=== PATIENT | female | born 1985 | race Caucasian/White ===

== ENCOUNTER 2024-05-23 23:52 | Emergency (ER) | payer BC, SELFPAY ==
[2024-05-24 00:11] VITALS: BP 126/76
[2024-05-24 01:41] VITALS: BMI 29.2
[2024-05-24] MEDS: NSS 1000 IV (01:42)
[2024-05-24 02:01] LABS: % Basophils 0.3 % (0-2); % Eosinophils 0.3 % (0-6); % Immature Granulocytes 0.3 % (0-0.5); % Lymphocytes 9.9 % (20.5-51.1); % Monocytes 4.2 % (1.7-9.3); Absolute Lymphocytes 0.9 10^3/uL (1.2-3.4); Absolute Monocytes 0.4 10^3/uL (0.1-0.6); Absolute Neutrophils 8.1 10^3/uL (1.4-6.5); Hematocrit 34.7 % (37.0-47.0); Mean Corp Hgb Conc. 31.7 g/dL (33.0-37.0); Mean Corpuscular Hgb 24.2 pg (27.0-31.0); Mean Corpuscular Volume 76.4 fL (81.0-99.0); Mean Platelet Volume 9.1 fL (7.4-10.4); Nucleated Red Blood Cells % 0 %; Platelet Count 379 10^3/uL (130-400); Red Blood Cell Count 4.54 10^6/uL (4.20-5.40); Red Cell Dist. Width 15.8 % (11.5-14.5); White Blood Cell Count 9.5 10^3/uL (4.8-10.8)
[2024-05-24 02:07] LABS: Blood Urea Nitrogen 10 mg/dl (7-17); Calcium 9.8 mg/dl (8.4-10.2); Carbon Dioxide 24 mmol/L (22-30); Chloride 104 mmol/L (98-107); Estimated Creatinine Clearance > 125 ml/min; Glucose 118 mg/dl (70-99); Potassium 4.1 mmol/L (3.5-5.1); Sodium 137 mmol/L (135-145); eGFR > 60.00
--- NOTE | 2024-05-24 03:04 | EDRN ---
Patient reports feeling little better at this time.
--- NOTE | 2024-05-24 03:59 | ED.GENMED ---
History of Present Illness
General
Chief Complaint: Headache
Source: patient and spouse
Exam Limitations: none
Time Seen by Provider: 05/24/24 01:10
History of Present Illness
History of Present Illness:
39-year-old female presents with a headache. Patient does have a history of migraines. She states this afternoon started headache that is gradually gotten worse through the day. She admits she had a dry family member 2 hours away and come back.
On the way back is when her headache started. Interestingly though she started to have some feeling in her legs like her legs were cramping. She states this has happened to her few times in the past as well. She recently has been trying more
natural remedies for her headaches such as massage and chiropractic work. Patient states her headache is mostly gone on my evaluation. Her cramping is improved. Her headache is about a 1 or 2. No fevers or neck pain. No rash. No injury. No
vision changes. No motor weakness. No numbness or tingling. Spouse states that he tried massaging her seemed help a little bit but not fully.
Past History
Past History
ED Past Medical History: Asthma and Other (Cystitis, migraines)
ED Past Surgical History: Cholecystectomy (Cystitis, Miscarrage)
Social History
Tobacco: Non-smoker
Alcohol: None
Drug: None
Personal:
Living: with family
Employment: Employed
Phy Exam
Physical Exam
Physical Exam:
CONSTITUTIONAL Patient alert and oriented to person, place and time. Well-appearing. Vital signs reviewed.
HEAD atraumatic, normocephalic.
EYES eyelids normal to inspection, Extraocular muscles intact, Conjunctiva normal, Sclera normal.
NECK normal range of motion, Trachea midline, no jugular venous distention.
RESPIRATORY CHEST No respiratory distress noted, Chest expansion equal
BACK normal inspection, no obvious deformities
UPPER EXTREMITY range of motion normal, Motor strength normal, no cyanosis, no edema.
LOWER EXTREMITY range of motion normal, Motor strength normal, no cyanosis, no edema.
NEURO Speech normal, No focal motor deficits, Benjamin coma scale 15, Memory normal, Cranial Nerves intact to screening exam. No pronator drift
SKIN skin warm, dry, and normal in color.
Course
Orders/Labs/Results
Orders:
Orders
05/24/24 01:32
CT Head W/o Iv Contrast Urgent
Comment:
Reason For Exam: CUEVAS
0.9% Sodium Chloride 1000 ml [Nss] 1,000 ml IV BOLUS
05/24/24 01:36
Basic Metabolic Panel Urgent
Complete Blood Count/With Diff Urgent
Abnormal Lab Results
05/24/24
01:36
Hgb 11.0 L g/dL
(12.0-16.0)
Hct 34.7 L %
(37.0-47.0)
MCV 76.4 L fL
(81.0-99.0)
MCH 24.2 L pg
(27.0-31.0)
MCHC 31.7 L g/dL
(33.0-37.0)
RDW 15.8 H %
(11.5-14.5)
Absolute Neuts (auto) 8.1 H 10^3/uL
(1.4-6.5)
Absolute Lymphs (auto) 0.9 L 10^3/uL
(1.2-3.4)
Neutrophils % 85.0 H %
(42.2-75.2)
Lymphocytes % 9.9 L %
(20.5-51.1)
Glucose 118 H mg/dl
(70-99)
05/24/24 01:36
05/24/24 01:36
Vital Signs
Initial and Last Documented VS:
Initial Vital Signs
Temp Pulse Resp BP Pulse Ox
97.2 F 90 20 126/76 98
05/24/24 00:11 05/24/24 00:11 05/24/24 00:11 05/24/24 00:11 05/24/24 00:11
Last Documented Vital Signs
Temp Pulse Resp BP Pulse Ox
97.2 F 90 20 126/76 98
05/24/24 00:11 05/24/24 00:11 05/24/24 00:11 05/24/24 00:11 05/24/24 00:11
MDM/Problems Addressed
Differential Diagnosis Includes:
Meningitis, migraine headache, cluster headache, subarachnoid hemorrhage, tumor, dehydration
MDM/Problems Addressed:
Headache
*Radiology
Radiology exam reviewed: preliminary read by ED provider (No obvious bleeding) and radiology read reviewed
*Pulse Oximetry
Patient hypoxic: no
*Critical Care Note
Total Time (30-74mins, 75-104mins- exclusive of procedures): Not Applicable
Data Reviewed
Source: patient and spouse
Prescriptions/Medications Considered But Not Given:
Considered IV medications for headache the patient states the headache is mostly resolved
Patient Management
Escalation/DeEscalation of care consider admission/obs:
No concern for subarachnoid hemorrhage. No concern for meningitis. Feels much better. Okay for
ED Attending Note
-
Portions of this chart may have been created with voice recognition software.� Occasional wrong word or��sound alike� substitutions may have occurred due to the inherent limitations of voice recognition software.
Discharge Plan
Departure
Patient Disposition: Home (Routine Discharge)
Date of Disposition: 05/24/24
Time of Disposition: 04:03
Patient with high blood pressure during this ER visit?: No
Discharge Problem:
Headache
Instructions: Headache, Adult (DC)
Prescriptions:
No Action
prenat.vits,quan,[id number] [ Formula] 1 TAB tablet
1 tab PO DAILY
Patient Comments:
takes 'when I remember'
nitrofurantoin monohyd/m-cryst 100 MG capsule
100 mg PO BID 5 Days 0RF
ondansetron 4 MG tablet,disintegrating
4 mg PO TIDPRN PRN (Reason: nausea/vomiting) Qty: 9 0RF
Referrals:
Aldo Galdamez, [Family Provider] -
Activity Restrictions/Additional Instructions:
Please see your doctor next 2 to 3 days for follow-up and reevaluation. return immediately for worsening symptoms, vomiting, fevers, weakness of any kind or any other concerns.
Interventions
Interventions:
*Risk Screen - Suicide Last Done: 05/24/24 00:11
*General Assessment Last Done: 05/24/24 01:41
*Neglect/Abuse Screening Last Done: 05/24/24 00:11
*ED- Fall Risk Assessment Last Done: 05/24/24 01:41
*ED COVID-19 Vaccine History Last Done: 05/24/24 01:41
ED- Neurological Assessment Last Done: 05/24/24 02:30
Discharge Date and Time
Print Language: BURKINAN
[2024-05-24 04:21] VITALS: BP 112/61
== END 2024-05-24 04:26 | disposition home or self-care (01) ==
LOC: EMR 23:52
PROVIDERS: EMERGENCY PHYSICIAN Emergency Medicine; FAMILY PHYSICIAN Family Medicine
DX: R51.9 Headache, unspecified (principal); J45.909 Unspecified asthma, uncomplicated
CPT/HCPCS: 99284; 96360; 70450; 80048; 85025